=== PATIENT | male | born 1965 | race Caucasian/White ===

== ENCOUNTER 2019-08-06 06:04 | Inpatient (IN) ==
--- NOTE | 2019-07-29 08:28 | EKG Report ---
Test Performed on : 07/29/2019 08:16:03 AM Test Reason : PAT Blood Pressure : / mmHG Vent. Rate : 100 BPM Atrial Rate : 100 BPM P-R Int : 154 ms QRS Dur : 078 ms QT Int : 328 ms P-R-T Axes : 059 010 038 degrees QTc Int : 423 ms Normal sinus rhythm. Possible Left atrial enlargement Borderline ECG No previous ECGs available Confirmed by Leandro Gold MD ([id number]) on 07/29/2019 8:32:59 AM
[2019-07-29 08:46] LABS: BASO# 0.02 X1000 (0.0-0.2); BASO% 0.2 % (0.0-0.8); EOS# 0.02 X1000 (0.0-0.7); EOS% 0.2 % (0.0-10.0); HEMATOCRIT 44.2 % (42.0-52.0); HEMOGLOBIN 13.8 g/dL (14.0-18.0); LYMPH# 1.15 X1000 (1.2-3.4); LYMPH% 14.1 % (20.5-51.1); MCH 28.9 PG (27-31); MCHC 31.2 g/dL (33-37); MCV 92.7 FL (81-99); MONO# 0.58 X1000 (0.11-0.59); MONO% 7.1 % (1.7-9.3); MPV 12.2 FL (7.4-10.4); NEUT# 6.37 X1000 (1.4-6.5); NEUT% 78.4 % (42.2-75.2); PLT 211 X1000 (130-400); RBC 4.77 XMIL (4.7-6.1); RDW 15.5 % (11.5-14.5); WBC 8.14 X1000 (4.8-10.8)
[2019-07-29 09:20] LABS: AGAP 19; BUN 12 mg/dL (8-22); CALCIUM 9.7 mg/dL (8.8-10.2); CHLORIDE 93 mmol/L (98-107); COSMO 272; ESTIMATED GFR > 60; GLUCOSE 105 mg/dL (70-104); SODIUM 136 mmol/L (136-145); TCO2 24 mmol/L (25-35)
[2019-08-06] MEDS ORDERED: INVANZ 1 GM/NS 1 GM/50 ML IVPB ONE (06:49)
[2019-08-06] MEDS ORDERED: LR 1,000 ML ONE ×2 (06:50→08:49)
[2019-08-06] MEDS ORDERED: ENTEREG ONE (06:54)
[2019-08-06] MEDS ORDERED: DIPRIVAN 1% ONE (07:32)
[2019-08-06] MEDS ORDERED: DILAUDID ONE (07:32)
[2019-08-06] MEDS ORDERED: VERSED ONE (07:32)
[2019-08-06] MEDS ORDERED: PEPCID ONE (07:48)
[2019-08-06] MEDS ORDERED: VALIUM ONE (07:48)
[2019-08-06] MEDS ORDERED: REGLAN ONE (07:48)
[2019-08-06] MEDS ORDERED: EXPAREL 1.3% ONE (08:41)
[2019-08-06] MEDS ORDERED: MARCAINE 0.25% PF ONE (08:41)
[2019-08-06] MEDS ORDERED: STERILE WATER INJ. ONE ×2 (08:48→09:37)
[2019-08-06] MEDS ORDERED: QUELICIN (DOSE) ONE (08:48)
[2019-08-06] MEDS ORDERED: NORCURON ONE (08:48)
[2019-08-06] MEDS ORDERED: XYLOCAINE-MPF 2% ONE (08:48)
[2019-08-06] MEDS ORDERED: SENSORCAINE-MPF 0.5%/EPI 1:200,000 ONE (08:49)
[2019-08-06] MEDS ORDERED: OFIRMEV 1000 MG/ISOTONIC SOLN 1,000 MG/100 ML BOTTLE ONE (09:32)
[2019-08-06 09:57] LABS: URINE SOURCE CATH
[2019-08-06 10:03] LABS: BILIRUBIN URINE NEGATIVE (NEGATIVE); BLOOD URINE TRACE (NEGATIVE); COLOR YELLOW; GLUCOSE URINE NEGATIVE (NEGATIVE); KETONE URINE 60 mg/dL (NEGATIVE); LEUKOCYTES URINE NEGATIVE (NEGATIVE); NITRITE URINE NEGATIVE (NEGATIVE); PH URINE 5.5; PROTEIN URINE 30 mg/dL (NEGATIVE); SP GRAVITY URINE 1.024; TURBIDITY URINE CLEAR (CLEAR); UROBILINOGEN URINE NORMAL (NORMAL)
[2019-08-06 10:05] LABS: UR EPITHELIAL CELLS <10 /HPF (<10); URINE BACTERIA NEGATIVE /HPF; URINE WBC <10 /HPF (<10)
[2019-08-06] MEDS ORDERED: EPHEDRINE ONE (10:54)
[2019-08-06] MEDS ORDERED: D5 1/2 NS + KCL 20 MEQ 1,000 ML ONE (12:21)
--- NOTE | 2019-08-06 12:42 | OPERATIVE NOTE ---
PROCEDURE DATE: 08/06/2019 PREOPERATIVE DIAGNOSIS: Sigmoid colon cancer. POSTOPERATIVE DIAGNOSIS: Sigmoid colon cancer. PRINCIPAL PROCEDURE: Robotic-assisted laparoscopic low anterior colon resection. SURGEON: Luz Marina Arias M.D. DIGITAL COMPOSER: Dr. Robb Garrison. ANESTHESIA: General, in addition to a TAP block and also local anesthetic. ESTIMATED BLOOD LOSS: 100 mL. DRAINS: None. INDICATIONS: Mr. Osiel Waite is a 53-year-old, white male, patient of Dr. William Gilman. He underwent a screening colonoscopy that documented two separate polyps, one an ascending polyp, and one was a polyp in the sigmoid colon. The pathology of the sigmoid colon polyp documented cancer. A CT scan was done 3 days later, and showed this cancerous polyp in the mid sigmoid colon. There was no evidence of metastatic disease. Resection was recommended. FINDINGS: The specimen was inked, and it was in the [id number] sigmoid colon. We performed a robotic-assisted laparoscopic resection with a stapled 28 mm end-to-end EEA anastomosis between the mid rectum and the descending colon. We did not take down the splenic flexure. No other intra-abdominal pathology was noted. We felt we did this operation safely. DESCRIPTION OF PROCEDURE: The patient underwent a bowel prep prior to presenting to Outpatient Surgery this morning. He received IV Invanz. He was brought to the operating room, where he was positioned by robotic nurses. He was placed supine, received general anesthesia, was intubated, Ovalles catheter tube was placed, and he was placed in stirrups. I began the procedure by making a small incision at the umbilicus, and a Veress needle was introduced intra- abdominally. Pneumoperitoneum was established. I marked my trocar sites with a skin marker, and used local anesthetic. I put my camera trocar just superior and to the right of the umbilicus. Our camera was placed through this port, and the abdomen was explored for injury; there was none. I then placed my stapling trocar in the right lower quadrant of the abdomen. I placed two 8 mm trocars, left flank and mid left abdomen, under direct vision of the camera. At this time, the robot was brought in through the patient's left side, and docked to our trocars. It must be noted that the patient was placed in Trendelenburg and turned to his right so that the small bowel would fall away from the sigmoid colon. The sigmoid colon was adhered to the left abdominal sidewall, which was helpful with exposure. I used a bowel grasper, a cadiere, and scissors to begin the procedure. I was at the console. I retracted the sigmoid colon superiorly. I identified the inferior mesenteric vessels. I made an incision at the base of the mesentery distal to those vessels using the scissors, and then I used mostly blunt dissection to move from medial to lateral, the mesentery from the retroperitoneum. I identified the iliac artery and then the ureter above it. I created that plane medial to lateral, distal to the inferior mesenteric vessels. I went all the way to the sidewall. I then went down distally and proximally. I got around the inferior mesenteric vessels, and went superiorly with some dissection, so that I had a good resection of the sigmoid colon, down to about midrectum. The inked specimen was really in the distal sigmoid colon. I used the robotic vessel sealer to come across the inferior mesenteric vessels carefully. They were dissected at their base. I burned these vessels twice before dividing them with the vessel sealer. I then worked to transect the mesentery proximal to those divided vessels and up onto the descending sigmoid colon junction, which was plenty proximal to include our cancer. Once I was comfortable that the mesentery was divided proximally, I worked on the mesentery distally, again using mostly the vessel sealer, and I exposed the midrectum. To help me do this, I put a Ang around the distal sigmoid colon to help with retraction. I then came up the lateral aspect of the sigmoid colon using scissors and cautery or the vessel sealer, making sure that the bowel was totally free. I used a blue load robotic stapler to come across the midrectum. I had to use two loads to totally encompass the rectum. Once I divided the rectum, I felt that our specimen was free, and we had a good cancer resection. At this point, I went to the patient's side, and we made an oblique incision in the left lower quadrant of the abdomen using a 15 blade scalpel, and this was carried down to the muscle, which we divided bluntly, and then incised the peritoneum and entered the abdominal cavity. We used a small wound protector, and we brought out our specimen through this wound protector. I used a pursestring instrument to place a pursestring at the descending sigmoid junction. I divided our specimen at the pursestring with Field scissors, and the pursestring instrument was removed. I sized the colon, and we chose a 28 mm EEA stapler. I placed an anvil proximally. The pursestring was tied around the anvil, and we took time to clean some fat from around the anvil. The specimen was dropped back into the abdomen. We placed a Rosalia clamp across our wound protector, and a pneumoperitoneum was reestablished. At this point, I went below, between the patient's legs. Dr. Garrison stayed at the abdomen. I placed dilators into the rectum, and then I placed a 28 mm EEA under direct vision of the laparoscope to the rectal stump. This passed easily, and Dr. Garrison mated the anvil to my EEA stapler, making sure that the descending colon was not twisted. The anvil and EEA stapler were mated. The stapler was fired. We had 2 intact donuts, and the EEA stapler was removed. Warm saline was placed in the pelvis. Using a rigid proctoscope, I blew air across our anastomosis, and there was no evidence of leak. The irrigation was removed with suction. We closed our small incision in the left lower quadrant in layers. The posterior muscle and fascia was closed with a running 0 Vicryl stitch. The anterior fascia was closed with a running #1 Maxon stitch. I closed my 12 mm port site fascia with [id number] 2-0 Vicryl stitches. All skin was closed with 4-0 Monocryl subcuticular stitch. Dressings were applied. He tolerated the procedure well, with plans to leave his Ovalles catheter tube. He will go to the recovery room, and then be admitted to the floor. We did not use an NG tube. It must be noted that Dr. Robb Garrison was present throughout the case. He helped with the dissection. He was also helpful placing the anvil proximally, removing the specimen from the abdomen, and then helping me mate the anvil to the EEA stapler. He also helped close the wounds. He was present throughout the case. cc: Luz Marina Arias MD [facility]
[2019-08-06] MEDS ORDERED: ZOFRAN IV PRN (13:32)
[2019-08-06] MEDS ORDERED: ULTRAM PO PRN (13:34)
[2019-08-06] MEDS: D5 1/2 NS + KCL 20 MEQ 1,000 ML IV SCH (16:34)
[2019-08-06] MEDS: MOTRIN PO SCH (16:34)
[2019-08-06] MEDS: OFIRMEV 1000 MG/ISOTONIC SOLN 1,000 MG/100 ML BOTTLE IV SCH ×2 (16:34→21:18)
[2019-08-06] MEDS ORDERED: PNEUMOVAX 23 IM ONE (18:02)
[2019-08-06] MEDS: PERIDEX MT SCH (20:28)
[2019-08-06] MEDS ORDERED: PERIDEX MT SCH (21:00)
[2019-08-07] MEDS: D5 1/2 NS + KCL 20 MEQ 1,000 ML IV SCH ×2 (02:33→19:05)
[2019-08-07] MEDS: OFIRMEV 1000 MG/ISOTONIC SOLN 1,000 MG/100 ML BOTTLE IV SCH ×2 (04:03→15:38)
[2019-08-07] MEDS: LOVENOX SUBQ SCH (06:02)
[2019-08-07] MEDS: MOTRIN PO SCH ×3 (08:40→16:58)
[2019-08-07] MEDS: PERIDEX MT SCH (08:40)
[2019-08-07] MEDS ORDERED: ENTEREG PO SCH (09:45)
[2019-08-07] MEDS: ZETIA PO SCH (15:32)
[2019-08-07] MEDS: LOTENSIN PO SCH (15:32)
[2019-08-07] MEDS: LOPRESSOR PO SCH (15:33)
[2019-08-07] MEDS: NORVASC PO SCH (15:33)
--- NOTE | 2019-08-07 16:13 | PROGRESS NOTE ---
DATE: 08/07/2019 Mr. Osiel Waite is postop day 1 from a robotic-assisted laparoscopic sigmoid colon resection for cancer. We felt the operation went well. We did an end-to-end EEA stapled anastomosis. We did not use an NG tube or an abdominal drain. All he has is a Ovalles catheter tube in place. We will plan to have that removed tomorrow morning. He has been up in a chair. He is sore. He states that he has had some flatus and he is tolerating liquids. We will plan to advance his diet to a heart healthy diet. Overall, I think he is doing very well. Dr. Debi Garrison is on the weekend for our group and will be in charge of his care and possible discharge. cc: Luz Marina Arias MD
[2019-08-07] MEDS: TYLENOL PO SCH (16:59)
[2019-08-08] MEDS: TYLENOL PO SCH ×3 (00:15→17:03)
[2019-08-08] MEDS: PERIDEX MT SCH ×2 (00:15→09:54)
[2019-08-08] MEDS: D5 1/2 NS + KCL 20 MEQ 1,000 ML IV SCH (06:26)
[2019-08-08] MEDS: LOVENOX SUBQ SCH (06:26)
[2019-08-08] MEDS: MOTRIN PO SCH ×3 (09:54→17:03)
[2019-08-08] MEDS: LOTENSIN PO SCH (12:28)
[2019-08-08] MEDS: LOPRESSOR PO SCH (12:28)
[2019-08-08] MEDS: NORVASC PO SCH (12:28)
[2019-08-08] MEDS: ZETIA PO SCH (12:28)
--- NOTE | 2019-08-08 16:27 | GENERAL SURGERY PROGRESS NOTE ---
DATE: 08/08/2019 SUBJECTIVE: Doing well. He has had a bowel movement. He is tolerating diet. No fevers. No tachycardia. Voiding without difficulty. PHYSICAL EXAMINATION: Abdomen: Soft. Incisions are intact. No cellulitis. LABS: No new labs this morning. ASSESSMENT AND PLAN: A 53-year-old male status post low anterior resection robotically by Dr. Arias. He is doing very well. He is on prophylactic Lovenox. Will stop his fluids and advance his diet. If he tolerates this, we will let him go home tomorrow. cc: MD Luz Marina Wyatt MD
[2019-08-09] MEDS: PERIDEX MT SCH ×2 (01:11→09:06)
[2019-08-09] MEDS: TYLENOL PO SCH ×2 (01:11→09:06)
[2019-08-09] MEDS: LOVENOX SUBQ SCH (06:47)
[2019-08-09] MEDS: MOTRIN PO SCH (09:06)
[2019-08-09 11:03] VITALS: BP 125/97
--- NOTE | 2019-08-09 15:36 | GENERAL SURGERY PROGRESS NOTE ---
DATE: 08/09/2019 SUBJECTIVE: He was seen after walking the halls. He is doing well. Bowels are functioning. He is voiding, tolerating diet, no pain, no fevers, no tachycardia. Abdomen is soft, nontender, nondistended. ASSESSMENT/PLAN: 53-year-old gentleman status post low anterior resection by Dr. Arias. He is doing well and I will let him go home. Given prescription for Vinson and Colace and he will see Dr. Arias this week. I have give him postop instructions. He will continue on GI soft diet and call with any problems. cc: MD Luz Marina Wyatt MD
== END 2019-08-09 12:26 | disposition home or self-care (01) | DRG 331 ==
LOC: 4N 06:04 → OPS 06:04 → OBSVTOIN 09:04
PROVIDERS: ADMIT Surgery; ATTEND Surgery